=== PATIENT | male | born 1960 | race Caucasian/White ===

== ENCOUNTER → 2017-04-15 | Outpatient (CLI) | payer BC ==
[2017-04-15 11:41] LABS: ALT 75 U/L (21-72); AST 38 U/L (17-59); Alkaline Phosphatase 85 U/L (38-126); Anion Gap 9 mmol/L; Blood Urea Nitrogen 15 mg/dL (9-20); Calcium 9.8 mg/dL (8.4-10.2); Carbon Dioxide 27 mmol/L (22-30); Chloride 105 mmol/L (98-107); Glucose 101 mg/dL (74-99); Non-African American GFR(MDRD) >60 (>60 ml/min/1.73 sqM); Potassium 4.6 mmol/L (3.5-5.1); Sodium 141 mmol/L (137-145); Total Bilirubin 0.6 mg/dL (0.2-1.3); Total Protein 7.4 g/dL (6.3-8.2)
--- NOTE | 2017-04-15 12:39 | MR ---
EXAMINATION TYPE: MR cervical spine wo/w con DATE OF EXAM: 04/15/2017 COMPARISON: 03/27/2012 and 01/27/2010. HISTORY: DDD. Prior surgery and pain for 30 years. TECHNIQUE: Multiplanar, multisequence images of the cervical spine were acquired utilizing 10 mL intravenous Jayme avist gadolinium contrast. Diffusion weighted imaging was performed. There are surgical fusion of C6-C7 with osseous fusion of C5-C6 and large anterior protruding bridgin g osteophytes of C3-C4 and C4-C5. C2-C3: No evidence for degenerative disc disease. No disc bulge/herniation or protrusion. No Canal stenosis. Foramina are patent bilaterally. C3-C4: Small central disc osteophyte complex and uncovertebral hypertrophy create moderate left neura l foraminal narrowing and mild right neural foraminal narrowing in combination with facet arthropathy . No spinal canal stenosis. C4-C5: Small central disc osteophyte complex and uncovertebral hypertrophy create mild left neural fo raminal narrowing. Right neural foramen is patent. Mild facet arthropathy is also present. No spinal canal stenosis. C5-C6: Right paracentral disc herniation with annular tear effaces the ventral subarachnoid space and creates an impression upon the right lateral spinal cord resulting in moderate spinal canal stenosis . No abnormal cord signal is seen to indicate edema or myelomalacia. Uncovertebral hypertrophy and fa cet arthropathy are also present resulting in mild bilateral neural foraminal narrowing. C6-C7: Hypertrophic posterior disc osteophyte complex protrudes posteriorly creating moderate spinal canal stenosis and impressing upon the cervical cord. No evidence of neuroforaminal stenosis at this level. C7-T1: No evidence for degenerative disc disease. No disc bulge/herniation or protrusion. No Canal stenosis. Foramina are patent bilaterally. Some enhancement is appreciated along the region of the posterior longitudinal ligament from C3 5 thr ough C7 in the region of the disc herniation and disc osteophyte complexes. This is may be a combinat ion of epidural fibrosis and disc herniation as well as hypertrophic osseous changes. Cervical spinal cord is of normal signal. Craniovertebral junction relationships are within normal limits. IMPRESSION: 1. New moderate spinal canal stenosis at C5-C7 impressing upon the cervical cord without evidence of abnormal cord signal to suggest myelomalacia or cord edema. Some enhancement suggests a degree of epi dural fibrosis in combination with right paracentral disc herniation at C5-C6 and disc osteophyte com plex. 2. Multilevel degenerative disc disease resulting in variable degrees of neural foraminal narrowing. 3. Postoperative changes of the cervical spine as described above.
== END | disposition home or self-care (01) ==
LOC: RADMRIMAIN 10:47
PROVIDERS: ATTEND Family Medicine
DX: M48.02 Spinal stenosis, cervical region (principal); M50.30 Other cervical disc degeneration, unspecified cervical region; M99.71 Connective tissue and disc stenosis of intervertebral foramina of cervical region; Z98.890 Other specified postprocedural states
CPT/HCPCS: 80053; 72156; 36415; A9581

== ENCOUNTER 2020-10-17 22:06 | Emergency (ER) | payer BC ==
[2020-10-17] MEDS ORDERED: TAMSULOSIN 0.4 MG CAP.ER.24H PO STA (22:59)
--- NOTE | 2020-10-17 23:10 | ED ---
General Adult HPI - General Chief complaint: Upper Respiratory Infection Stated complaint: Fever Time Seen by Provider: 10/17/20 22:09 Source: EMS Mode of arrival: EMS Limitations: no limitations - History of Present Illness Initial comments: This patient is a 60-year-old man transferred here from [facility]. The patient states that he had gone there to have evaluation for constellation of symptoms. He had been in usual state of health until approximately 2 days ago when he developed some right flank pain. Following day he noted he was having fever and chills and coughing. The patient went to [facility], regarding this. While he was there he had Covid test that was positive. Patient also had the scan of the chest (due to elevated d-dimer) that showed some patchy bilateral interstitial infiltrates consistent with Covid pneumonia. Are related to the flank pain he did have computed tomography scan of the abdomen pelvis that did show 2 mm nonobstructing left kidney stone. When I interview the patient, he is not having any dyspnea, hemoptysis, chest pain, vomiting or diarrhea. Onset/Timin -: days(s) Location: back Radiation: non-radiation Quality: aching Consistency: constant Improves with: none Worsens with: none Associated Symptoms: cough, fever/chills - Related Data Home Medications Medication Instructions Recorded Confirmed Aspirin EC [Ecotrin Low Dose] 81 mg PO DAILY 10/17/20 10/17/20 Atorvastatin Calcium [Lipitor] 40 mg PO DAILY 10/17/20 10/17/20 Lisinopril [Zestril] 10 mg PO DAILY 10/17/20 10/17/20 Metoprolol Succinate [Toprol XL] 50 mg PO DAILY 10/17/20 10/17/20 Allergies Allergy/AdvReac Type Severity Reaction Status Date / Time No Known Allergies Allergy Verified 10/17/20 22:20 Review of Systems ROS Statement: Those systems with pertinent positive or pertinent negative responses have been documented in the HPI. ROS Other: All systems not noted in ROS Statement are negative. Constitutional: Reports: as per HPI, fever, chills Respiratory: Reports: as per HPI, cough. Denies: dyspnea, wheezes, hemoptysis Cardiovascular: Denies: chest pain, palpitations, edema Gastrointestinal: Denies: abdominal pain, nausea, vomiting, diarrhea, constipation Genitourinary: Denies: dysuria, frequency, hematuria, testicular pain Musculoskeletal: Reports: as per HPI, back pain Skin: Denies: rash Neurological: Denies: headache, weakness, numbness Past Medical History Past Medical History: Hypertension, Myocardial Infarction (PR) History of Any Multi-Drug Resistant Organisms: None Reported Past Surgical History: Appendectomy Additional Past Surgical History / Comment(s): Stents placed 10 years ago. Past Psychological History: No Psychological Hx Reported Smoking Status: Current every day smoker Past Alcohol Use History: Occasional Past Drug Use History: None Reported General Exam Limitations: no limitations General appearance: alert, in no apparent distress Head exam: Present: atraumatic, normocephalic Eye exam: Present: normal appearance. Absent: scleral icterus, conjunctival injection Neck exam: Present: normal inspection Respiratory exam: Present: rales. Absent: respiratory distress, wheezes, rhonchi, stridor, accessory muscle use, decreased breath sounds, prolonged expiratory Cardiovascular Exam: Present: regular rate, normal rhythm, normal heart sounds. Absent: systolic murmur, diastolic murmur, rubs, gallop GI/Abdominal exam: Present: soft. Absent: distended, tenderness, guarding, rebound, rigid, mass Extremities exam: Present: normal inspection, normal capillary refill. Absent: pedal edema, calf tenderness Back exam: Present: normal inspection. Absent: CVA tenderness (R), CVA tenderness (L) Neurological exam: Present: alert Skin exam: Present: warm, dry, intact, normal color. Absent: rash Course Vital Signs 10/17/20 10/17/20 10/18/20 22:10 23:00 00:25 Temperature 98.5 F 101.2 F H Pulse Rate 83 82 78 Respiratory 20 18 18 Rate Blood Pressure 139/89 128/78 131/74 O2 Sat by Pulse 95 96 96 Oximetry 10/18/20 10/18/20 00:53 01:00 Temperature Pulse Rate 79 79 Respiratory 18 18 Rate Blood Pressure 120/66 120/64 O2 Sat by Pulse 96 95 Oximetry Disposition Clinical Impression: COVID-19, Flank pain Disposition: HOME SELF-CARE Condition: Good Instructions (If sedation given, give patient instructions): Coronavirus Disease 2019 (COVID-19), Flank Pain (ED) Is patient prescribed a controlled substance at d/c from ED?: No Referrals: Jus Kidd MD [Primary Care Provider] - 1-2 days
[2020-10-17] MEDS ORDERED: MORPHINE SULFATE 4 MG/ML SYRINGE IV STA (23:43)
[2020-10-18] MEDS ORDERED: BAMLANIVIMAB 700 MG in SODIUM CHLORIDE 0.9% 50 ML IVPB ONE (00:30)
[2020-10-18 05:39] VITALS: RESP 20
[2020-10-18 06:33] VITALS: BP 120/62; PULSE 86; TEMP 99.7
== END 2020-10-18 03:00 | disposition home or self-care (01) ==
LOC: EC 22:06 → SUPCPDRO 22:06 → EC 10-18 03:00
DX: U07.1 COVID-19 (principal); R10.9 Unspecified abdominal pain; I10 Essential (primary) hypertension; I25.2 Old myocardial infarction; Z79.82 Long term (current) use of aspirin; F17.200 Nicotine dependence, unspecified, uncomplicated; Z79.899 Other long term (current) drug therapy; Z90.49 Acquired absence of other specified parts of digestive tract
CPT/HCPCS: 99283; 96365; 96375; J2270; Q0239